=== PATIENT | female | born 1960 | race African-American/Black ===

== ENCOUNTER 2023-10-22 11:14 | Day surgery (SDC) | payer OTHER ==
[2023-09-25 12:05] VITALS: BMI 39.9
[~2023-10-22 11:14] MED LIST: Ondansetron PF 4 MG/2 ML Vial ONE; PROPOFOL 200 MG/20 ML VIAL ONE
[2023-10-22] MEDS ORDERED: Lidocaine 1% MPF 2 ML VIAL ONE (11:36)
== END 2023-10-22 14:30 | disposition home or self-care (01) ==
LOC: MRI 11:14
PROVIDERS: ATTEND Nurse Practitioner Family
DX: M54.16 Radiculopathy, lumbar region (principal); I10 Essential (primary) hypertension; E11.9 Type 2 diabetes mellitus without complications; E66.9 Obesity, unspecified; K21.9 Gastro-esophageal reflux disease without esophagitis; Z79.899 Other long term (current) drug therapy
CPT/HCPCS: 36416; 72148; J2405; J2704